=== PATIENT | male | born 1995 | race Caucasian/White ===

== ENCOUNTER 2019-01-05 03:23 | Emergency (ER) | payer OTHER, BC ==
[2019-01-05 03:43] VITALS: RESP 16; TEMP 96.5; O2SAT 100
[2019-01-05] MEDS ORDERED: IBUPROFEN 600 MG TAB PO ONE (03:56)
[2019-01-05] MEDS ORDERED: IBUPROFEN 600 MG TAB ONE (03:56)
[2019-01-05 04:07] VITALS: BP 123/78; PULSE 59
== END 2019-01-05 04:13 | disposition home or self-care (01) | DRG 605 ==
LOC: ED 03:23
DX: S60.012A Contusion of left thumb without damage to nail, initial encounter (principal); W31.89XA Contact with other specified machinery, initial encounter
CPT/HCPCS: 11740; 99282; A9270-GY